=== PATIENT | male | born 1965 | race Caucasian/White ===

== ENCOUNTER 2022-10-15 22:21 | Inpatient (IN) | payer MEDICARE, BC ==
[~2022-10-15] VITALS: Ht 175.3 cm; Wt 98.8 kg
--- NOTE | 2022-10-15 22:52 | NUR ---
called poison control [phone] spoke to Darrius, she does not feel that his symptoms would be related to lamictal as it has been 24 hours since his last dose, he would have been sllepy and dizzy last night, do ekg, watch for QRS widening, QTinterval changes, seizures, she states observe for 6 hours, ASA, tylenol, urine tox, blood alcohol, check for poss UTI or other underlying cause of his confusion, dizzines and paranoia, spoke to Dr Alston, she will address
[2022-10-15 23:08] LABS: BASOPHILS % (AUTO) 0.5 % (0-1); EOSINOPHILS % (AUTO) 0.4 % (0-6); HEMATOCRIT 52.6 % (42.0-52.0); HEMOGLOBIN 17.5 g/dl (14.0-17.9); LYMPHOCYTES # (AUTO) 1.7 X10'3 (1.1-4.8); LYMPHOCYTES % (AUTO) 18.4 % (21-51); MEAN CORPUSCULAR HEMOGLOBIN 30.1 PG (27.0-31.0); MEAN CORPUSCULAR HGB CONC 33.3 g/dL (33.0-36.5); MEAN CORPUSCULAR VOLUME 90.6 FL (78-98); MEAN PLATELET VOLUME 8.7 FL (7.4-10.4); MONOCYTES # (AUTO) 0.8 X10'3 (0-0.9); MONOCYTES % (AUTO) 8.6 % (2-12); NEUTROPHILS # (AUTO) 6.5 X10'3 (1.8-7.7); NEUTROPHILS % (AUTO) 72.1 % (42-75); PLATELET COUNT 229 X10'3 (140-440); RED BLOOD COUNT 5.81 X10'6 (4.70-6.10); RED CELL DISTRIBUTION WIDTH 13.9 % (11.5-14.5); WHITE BLOOD COUNT 8.9 X10'3 (4.5-11.0)
--- NOTE | 2022-10-15 23:11 | NUR ---
3140 called poison control [phone] to Cori, she states that the half life of lamictal XR is 22-36hrs and he would need to go through at least 2 half lives beforesymptoms started to resolve, order EKG to check for QRS widening, and QT intervals, ASA, Tylenol, urine tox and blood alcohol, suggests poss uti, Addendum: 10/15/22 at 2315 by TDEPIERRIMagalis spoke to dr Gamaliel russo pt she will put in orders, I advised her of Poison Control recommendations
[2022-10-15] MEDS ORDERED: LOSA25TA96 PO (23:18)
[2022-10-15] MEDS ORDERED: LAMO100T40 PO ×2 (23:28)
[2022-10-15] MEDS ORDERED: ATOR10TA87 PO (23:28)
[2022-10-15] MEDS ORDERED: EMPA10TA PO (23:28)
[2022-10-15] MEDS ORDERED: INSU300I (23:28)
[2022-10-15] MEDS ORDERED: METF-436 PO ×2 (23:28)
[2022-10-15] MEDS ORDERED: INSU300I SQ (23:28)
[2022-10-15] MEDS ORDERED: SEMA0.25 (23:28)
[2022-10-15 23:29] LABS: ALANINE AMINOTRANSFERASE 38 U/L (12-78); ALBUMIN/GLOBULIN RATIO 1.1 (1.1-1.5); ALKALINE PHOSPHATASE 77 IU/L (46-116); ANION GAP 13 (8-16); ASPARTATE AMINO TRANSFERASE 28 U/L (10-37); BILIRUBIN,TOTAL 2.2 MG/DL (0.1-1.0); BLOOD UREA NITROGEN 19 MG/DL (7-18); BUN/CREATININE RATIO 23.5 (5.4-32.0); CALCIUM 9.2 MG/DL (8.5-10.1); CHLORIDE 100 MMOL/L (99-107); CREATININE 0.81 MG/DL (0.60-1.10); ETHANOL < 0.010 GM/DL (0.0-0.010); GLUCOSE 132 MG/DL (70-104); SODIUM 136 MMOL/L (135-145); TOTAL CARBON DIOXIDE 23.2 MMOL/L (24-32); TOTAL PROTEIN 7.6 G/DL (6.4-8.2); eGFR > 90 ML/MIN
[2022-10-15 23:34] LABS: VALPROATE < 3.0 UG/ML (50-100)
[2022-10-15 23:41] LABS: ACETAMINOPHEN < 2.0 UG/ML (10-30)
[2022-10-16 00:39] LABS: CLARITY,URINE CLEAR (Clear); COLOR,URINE STRAW (Yellow); GLUCOSE, URINE >=1000 mg/dl (Neg); KETONES,URINE 40 mg/dl (Neg); LEUKOCYTE ESTERASE ,URINE NEGATIVE (Neg); NITRITES, URINE NEGATIVE (Neg); OCCULT BLOOD,URINE NEGATIVE (Neg); PH,URINE 5.5 (4.8-8.0); PROTEIN,URINE NEGATIVE (Neg); UROBILINOGEN,URINE 0.2 E.U/dL (0.2-1.0)
[2022-10-16 00:42] LABS: UA COLLECTION TYPE VOIDED
[2022-10-16 00:44] LABS: URINE AMPHETAMINE SCREEN NEGATIVE (Neg); URINE BARBITUATE SCREEN NEGATIVE (Neg); URINE BENZODIAZEPINES SCREEN NEGATIVE (Neg); URINE CANNABINOID SCREEN NEGATIVE (Neg); URINE COCAINE SCREEN NEGATIVE (Neg); URINE METHADONE SCREEN NEGATIVE (Neg); URINE OPIATE SCREEN NEGATIVE (Neg); URINE PHENCYCLIDINE SCREEN NEGATIVE (Neg)
[2022-10-16 00:50] LABS: MUCUS STRANDS FEW /LPF (Neg); SQUAMOUS EPITHELIAL CELL,UR MODERATE /LPF (FEW)
[2022-10-16 00:51] LABS: BACTERIA,URINE FEW /HPF (Neg); CAL OXALATE CRYSTALS 1+ /HPF (NEGATIVE); RBC,URINE 0-2 /HPF (0-2); WBC,URINE 0-4 /HPF (0-4)
[2022-10-16] MEDS ORDERED: normal saline 1000ML IV soln IVB ONE (05:05)
[2022-10-16] MEDS ORDERED: LORazepam 2 mg/ml vial IV ONE (10:45)
[2022-10-16] MEDS ORDERED: diphenhydrAMINE 50 mg/ml inj IV ONE (10:45)
--- NOTE | 2022-10-16 16:29 | NUR ---
marcus sent pt packet to [facility]
[2022-10-16] MEDS: INSULIN GLARGINE HUM REC ANLOG 30 UNIT SQ SCH (20:00)
[2022-10-16] MEDS: metFORMIN 500mg tablet PO SCH (20:46)
--- NOTE | 2022-10-16 20:57 | NUR ---
PATIENT'S BS 140, PT USUALLY TAKE 30 UNITS TOJEO INSULIN, NOT AVAILABLE PER PHARMACY. SPOKE WITH DR. SANTOS [facility]
--- NOTE | 2022-10-17 00:43 | NUR ---
PT. SLEEPING QUIETLY IN BED WITHOUT APPARENT DISTRESS.
--- NOTE | 2022-10-17 01:34 | NUR ---
SLEEPING QUIETLY ON LEFT SIDE WITHOUT DISTRESS. WILL CONTINUE TO MONITOR.
--- NOTE | 2022-10-17 02:46 | NUR ---
No change in pt. condition, sleeping quietly. Will continue to monitor.
--- NOTE | 2022-10-17 03:50 | NUR ---
Awake , resting quietly in bed without distress observed. Will continue to monitor.
--- NOTE | 2022-10-17 04:41 | NUR ---
Pt. ambulated to bathroom with steady gait, back to bed resting quietly. Will continue to monitor.
--- NOTE | 2022-10-17 05:49 | NUR ---
Continues to sleep without distress. Will continue to monitor.
--- NOTE | 2022-10-17 07:05 | NUR ---
Patient is sitting quietly in bed. Will continue to monitor.
[2022-10-17] MEDS: lamoTRIgine 100mg tablet PO SCH (07:44)
[2022-10-17] MEDS: metFORMIN 500mg tablet PO SCH ×2 (07:44→20:16)
[2022-10-17] MEDS: EMPAGLIFLOZIN 10 MG TABLET PO SCH (07:44)
[2022-10-17] MEDS: atorvastatin 10mg tablet PO SCH (07:44)
[2022-10-17] MEDS: INSULIN GLARGINE HUM REC ANLOG 30 UNIT SQ SCH ×2 (07:45→18:40)
[2022-10-17] MEDS ORDERED: losartan 50mg tablet PO SCH (08:00)
--- NOTE | 2022-10-17 08:06 | NUR ---
Patient is visiting with his at bedside.
[2022-10-17] MEDS ORDERED: LORazepam 1 MG tablet PO ONE (08:50)
--- NOTE | 2022-10-17 09:01 | NUR ---
Patient is in the bathroom brushing his teeth.
--- NOTE | 2022-10-17 10:06 | NUR ---
Patient is using the bathroom. is at bedside
--- NOTE | 2022-10-17 11:03 | NUR ---
Patient is visiting with at bedside
[2022-10-17] MEDS: calcium carbonate 500mg chew tablet PO SCH ×2 (13:03→18:08)
--- NOTE | 2022-10-17 14:01 | NUR ---
Patient is talking quietly with his .
--- NOTE | 2022-10-17 14:34 | NUR ---
by bedside, pt was talking on the phone, appears to be relaxed. advised that pt had a good lunch
--- NOTE | 2022-10-17 15:01 | NUR ---
Brigitte from [facility] informed that pt is accepted into H
--- NOTE | 2022-10-17 16:01 | NUR ---
BRAULIO Washington from [facility] @ bedside. 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
[2022-10-17] MEDS ORDERED: mag hydrox/Alum hydrox/simeth 30ml oral suspension PO PRN (16:25)
[2022-10-17] MEDS ORDERED: acetaminophen 325mg tablet PO PRN ×2 (16:25)
[2022-10-17] MEDS ORDERED: magnesium hydroxide 30ml (MOM) UD suspension PO PRN (16:25)
--- NOTE | 2022-10-17 17:23 | NUR ---
Admit note: Pt admitted to [facility] today on 5150 for DTS/GD at 1605. Pt presents as confused and anxious. He has difficulty sitting down and eating. He reported that his suicidal thoughts are returning and he is feeling unsafe. He states "I somethimes thinkh my gfamily would be better off without me." Pt has history of periferal neruopathy, DM II, back pain, depression, Bipolar.
[2022-10-17 20:00] VITALS: BP 114/59
--- NOTE | 2022-10-17 21:46 | NUR ---
Received report at beginning of shift. Introduced myself to patient. He was sitting up in TV room watching a movie with other patients. Seems to be in good spriits while talking about movies and actors. Besides a bit of a flat affect, patient seems to be interacting and participating in conversations. Patient requesting something to help him sleep. Had to explain to him that whatever he may have gotten in the ER, is not ordered now. Explained that the first day/night after admissions is sometimes a little harder, as we are still trying to get medications figured out for him. He understood, but seemed a little frustrated. He asked to keep his roommate from pacing - I notified roommate's nurse.
--- NOTE | 2022-10-18 07:36 | NUR ---
Diabetes consult: Pt w/ hx of DM, no A1c in EMR. Pt would likely not be appropriate for education given admitting dx. Addendum: 10/18/22 at [address] Amended: Links added.
[2022-10-18 08:00] VITALS: BP 163/89
[2022-10-18] MEDS: INSULIN GLARGINE HUM REC ANLOG 30 UNIT SQ SCH ×2 (08:00→20:00)
[2022-10-18] MEDS: EMPAGLIFLOZIN 10 MG TABLET PO SCH (08:00)
[2022-10-18] MEDS: atorvastatin 10mg tablet PO SCH (08:43)
[2022-10-18] MEDS: calcium carbonate 500mg chew tablet PO SCH ×3 (08:43→17:40)
[2022-10-18] MEDS: losartan 50mg tablet PO SCH (08:43)
[2022-10-18] MEDS: metFORMIN 500mg tablet PO SCH ×2 (08:44→21:42)
[2022-10-18] MEDS: lamoTRIgine 100mg tablet PO SCH (08:44)
[2022-10-18 10:57] LABS: CHOL/HDL RATIO 1.6 (0.00-4.99); CHOLESTEROL 83 MG/DL (0-200); HDL CHOLESTEROL 51 MG/DL (35-60); LDL CHOLESTEROL 28 MG/DL (50-100); TRIGLYCERIDES 42 MG/DL (20-135)
[2022-10-18 13:48] LABS: HEMOGLOBIN A1C 5.6 % (4.5-6.2)
--- NOTE | 2022-10-18 17:49 | NUR ---
Nursing Progress Note: Pt admitted to [facility]al health today on 5150 for DTS/GD at 1605. Pt presents as confused and anxious. He has difficulty sitting down and eating. He reported that his suicidal thoughts are returning and he is feeling unsafe. He states "I sometimes think my family would be better off without me." Pt has history of peripheral neuropathy, DM II, back pain, depression, Bipolar. Interventions : Maintained a safe and supportive environment, provided clear and simple instructions, monitored behaviors and need for intervention, and maintained Q 15min safety checks. Response: Received patient sleeping in bed at change of shift. Patient attends breakfast with peers in group room. Patient takes medications as directed. Patient does not have his own insulin here, so requested that he ask his to bring it in for him to use, although his FBG has been WNL. Patients came in and gave us Dr. Telles drug testing for patient. She wanted to speak to the and a note was left for to that effect. Plan : Patient requires interruption of current crisis and medication adjustment in a safe and therapeutic environment.
[2022-10-18 20:01] VITALS: BP 134/62
[2022-10-18] MEDS: ARIPIPRAZOLE 15 MG TABLET PO SCH (21:42)
[2022-10-18] MEDS: LORazepam 1 MG tablet PO PRN (21:42)
--- NOTE | 2022-10-19 01:26 | NUR ---
Nursing Progress Note: Pt admitted to Behavioral health today on 5150 for DTS/GD at 1605. Pt presents as confused and anxious. He has difficulty sitting down and eating. He reported that his suicidal thoughts are returning and he is feeling unsafe. He states "I sometimes think my family would be better off without me." Pt has history of peripheral neuropathy, DM II, back pain, depression, Bipolar. Interventions : Maintained a safe and supportive environment, provided clear and simple instructions, monitored behaviors and need for intervention, and maintained Q 15min safety checks. Response: Pt lying in bed at start of shift. Pt isolated to his room except to come to group room for snack and then return to room. His affect is blunted. He answers questions with a minimal response. He denies SI at this time said he is still depressed but is getting better. He said he has had depression all his life but it comes and goes. He said his will bring in his insulin tomorrow. He is unclear about dosages for insulin. He took his HS meds without problem and went to sleep. Plan : Patient requires interruption of current crisis and medication adjustment in a safe and therapeutic environment.
[2022-10-19 08:00] VITALS: BP 116/60
[2022-10-19] MEDS: INSULIN GLARGINE HUM REC ANLOG 30 UNIT SQ SCH (08:00)
[2022-10-19] MEDS: EMPAGLIFLOZIN 10 MG TABLET PO SCH (08:25)
[2022-10-19] MEDS: metFORMIN 500mg tablet PO SCH ×2 (08:25→20:47)
[2022-10-19] MEDS: atorvastatin 10mg tablet PO SCH (08:26)
[2022-10-19] MEDS: calcium carbonate 500mg chew tablet PO SCH ×3 (08:26→18:10)
[2022-10-19] MEDS: lamoTRIgine 100mg tablet PO SCH (08:26)
[2022-10-19] MEDS: losartan 50mg tablet PO SCH (08:27)
[2022-10-19] MEDS: loperamide 2mg capsule PO PRN ×2 (15:46→20:46)
--- NOTE | 2022-10-19 17:52 | NUR ---
Nursing Progress Note Problem Pt admitted to Behavioral health today on 5150 for DTS/GD at 1605. Pt presents as confused and anxious. He has difficulty sitting down and eating. He reported that his suicidal thoughts are returning and he is feeling unsafe. He states "I sometimes think my family would be better off without me." Pt has history of peripheral neuropathy, DM II, back pain, depression, Bipolar. Interventions : Maintained a safe and supportive environment, provided clear and simple instructions, monitored behaviors and need for intervention, and maintained Q 15min safety checks. Response: Received Pt in bed sleeping w/o distress at the beginning of this shift. Pt woke and was cooperative with vitals and came to community room and ate both meals well today. Pts BS before lunch was 135. Pt guarded and minimizing MH SXs. Pt reports Im feeling better, but remains with passive SI. Pt napped in AM and Afternoon. C/O diarrhea and received Imodium X1. Pt used phone to talk with family throughout the day. Family has not yet brought in Pts Insulin. Dr Mendoza would like to be called when that Med arrives to discuss its use. Overall pleasant and asks for needs appropriately. Plan : Patient requires interruption of current crisis and medication adjustment in a safe and therapeutic environment.
[2022-10-19 20:00] VITALS: BP 137/87
[2022-10-19] MEDS: ARIPIPRAZOLE 15 MG TABLET PO SCH (20:46)
[2022-10-19] MEDS: LORazepam 1 MG tablet PO PRN (20:54)
--- NOTE | 2022-10-19 23:40 | NUR ---
Nursing Progress Note Problem: Pt admitted from [facility] on 5150 as DTS. Pt has history of MDD, PTSD. Pt. has made multiple suicidal attempts. Interventions: One to one with patient in his room. Assessed for severity of depressive symptoms and self harm risks. Physical assessment completed. Medicated for complaints of diarrhea. Assessed for confusion. Patient on Q 15 minutes for safety. Response: Patient is pleasant and cooperative. He reports recent episode of diarrhea. Denies SI at the time. reports feelings of SI when he is unable to sleep. States, "If I can't sleep I want to just ent it all.' He has had a recent decrease in appetite and reports a 20lb weight loss without trying. He resides in a house with his and she is very supportive. Patient requested Ativan at bedtime. Plan: Maintain a safe environment and continue Q15 minute checks throughout shift. Discharge has yet to be determined.
[2022-10-20 08:00] VITALS: BP 128/74
[2022-10-20] MEDS: lamoTRIgine 100mg tablet PO SCH (08:17)
[2022-10-20] MEDS: metFORMIN 500mg tablet PO SCH ×2 (08:17→19:34)
[2022-10-20] MEDS: EMPAGLIFLOZIN 10 MG TABLET PO SCH (08:17)
[2022-10-20] MEDS: atorvastatin 10mg tablet PO SCH (08:17)
[2022-10-20] MEDS: losartan 50mg tablet PO SCH (08:20)
[2022-10-20] MEDS: calcium carbonate 500mg chew tablet PO SCH ×3 (10:38→18:08)
[2022-10-20] MEDS: LORazepam 1 MG tablet PO PRN ×2 (13:31→19:34)
--- NOTE | 2022-10-20 15:12 | NUR ---
Nursing Progress Note Problem Pt admitted to [facility] on a 5150 for DTS/GD at 1605. Pt presents as confused and anxious. He has difficulty sitting down and eating. He reported that his suicidal thoughts are returning and he is feeling unsafe. He states "I sometimes think my family would be better off without me." Pt has history of peripheral neuropathy, DM II, back pain, depression, Bipolar. Interventions : 1:1 assessment, establishment of rapport, therapeutic communication, active listening, ensured contract for safety, medication administration/education/monitoring, blood glucose monitoring, provided distraction, redirection, encouragement to participate in unit activities, positive reinforcement, and Q15 minute safety checks. Response: Pt's FS BG this morning AC breakfast was 95, it was 102 before lunch. Pt continues on PO antidiabetic meds, pt is not receiving, nor seems to need insulin. Pt denies SI this morning reporting that he was "just hungry." Pt c/o 9/10 back pain and was given PRN Tylenol 650 mg at 0822 with good effect. Pt's visited today. She emphasized how helpful Ativan is for the patient and when he takes it, "he comes back," he does not seem ill to her then. reports that pt really does not sleep well and Ativan helps him sleep. stated that pt goes through episodes of depression and he continues to take his medical meds (those for HTN or DM) but will not take his psych meds (lamotrigine.) stressed that she doesn't understand it, she doesn't know why. This RN asked Miguelito why he had not wanted to take his psych meds. Pt replied that they hurt his stomach. Pt describes ongoing abdominal discomfort and diarrhea. Suggested that he make an appointment with his PCP to address this. Pt and also reported that pt has lost a lot of weight, around 40 pounds since he was prescribed his twice daily insulin at home,and that pt's blood sugar had been dropping down to the 60's with pt symptomatic of s/sx hypoglycemia. Educated pt and that he probable no longer needs his insulin, and again, that they should discuss this with his PCP. Pt approached this RN with the cordless phone after lunch stating that his wished to speak with me. told this RN that the pt was anxious and needed some Ativan. She also wanted to ensure that the pt is prescribed Ativan when he is discharged. instructed that if the patient could have Ativan now and again tonight at bedtime, that would be great. Pt was given PRN Ativan 1 mg at 1331. Pt approached this nurse around 1430 c/o feeling "groggy." He asked if it would be okay if he went to lie down for a nap and asked if his grogginess was caused by the Ativan. Pt educated that it was likely a result of the Ativan. Pt went to his room for a nap. Plan : Pt was in need of stabilization with medication adjustment and management in a safe and therapeutic environment. Plan is for the patient to discharge home with his tomorrow.
--- NOTE | 2022-10-20 16:19 | NUR ---
Therapeutic group DESCRIPTION Daily therapeutic groups support [facility] crisis-recovery environment. RESPONSE Client came to group, did not speak, participated in "thank you" activity, and excused himself, stating he had just taken Ativan and was falling asleep. Client was very polite: "I don't want to be rude." Group members told client it was fine. SKILL BUILDING AREA: psychosocial educationgestures of gratitude and thanks release dopamine, which allows a feeling of well-being, pleasure, accomplishment. Activity: requested by clients -- thank you banner for kitchen staff. Discussion of supportive (but not problem solving) peer conversation using the V-validation, A-acknowledgement, R-refer model, with a handout. INTERVENTION Therapeutic communication, peer support, validation by peers, coping skills and psychosocial education. Secondarily: intellectual and physical activity, peer, and staff companionship, alleviating and discouraging isolation. TREATMENT Until stable, client requires time in a safe and therapeutic environment employing multidisciplinary treatments, including therapeutic groups.
[2022-10-20] MEDS: ARIPIPRAZOLE 15 MG TABLET PO SCH (19:34)
[2022-10-20 20:23] VITALS: BP 141/78
--- NOTE | 2022-10-21 00:48 | NUR ---
Nursing Progress Note : asael Salazar Pt admitted to [facility] on a 5150 for DTS/GD at 1605. Pt presents as confused and anxious. He has difficulty sitting down and eating. He reported that his suicidal thoughts are returning and he is feeling unsafe. He states "I sometimes think my family would be better off without me." Pt has history of peripheral neuropathy, DM II, back pain, depression, Bipolar. Interventions : 1:1 assessment, establishment of rapport, therapeutic communication, active listening, ensured contract for safety, medication administration/education/monitoring, blood glucose monitoring, provided distraction, redirection, encouragement to participate in unit activities, positive reinforcement, and Q15 minute safety checks. Response: Received pt lying in bed resting. Pt somewhat agitated that this RN woke him but complained of some anxiety and requested Ativan with his HS medications. Pt isolated to his room all evening, declined snacks, and took all HS medications. Pt went to bed shortly after med pass. Plan : Pt was in need of stabilization with medication adjustment and management in a safe and therapeutic environment. Plan is for the patient to discharge home with his tomorrow.
--- NOTE | 2022-10-21 07:23 | NUR ---
Initial: pt admitted w/ bipolar disorder per EMR. Currently on Carb control diet w/ avg intake 70% of meals partially meeting needs. A1c 5.6 Recommend liberalizing to Regular diet as A1c WNL and this will give him more calories. LBM 10/18. Will continue to monitor. Recs: 1. Liberalize to Regular diet; A1c 5.6 2. Bowel care per rx 3. Weekly wts Addendum: 10/21/22 at [address] Amended: Links added.
[2022-10-21] MEDS: EMPAGLIFLOZIN 10 MG TABLET PO SCH (07:42)
[2022-10-21] MEDS: metFORMIN 500mg tablet PO SCH (07:43)
[2022-10-21] MEDS: calcium carbonate 500mg chew tablet PO SCH ×2 (07:43→12:30)
[2022-10-21] MEDS: atorvastatin 10mg tablet PO SCH (07:43)
[2022-10-21] MEDS: losartan 50mg tablet PO SCH (07:43)
[2022-10-21] MEDS: lamoTRIgine 100mg tablet PO SCH (07:44)
[2022-10-21 07:46] VITALS: BP 128/68
[2022-10-21] MEDS ORDERED: ARIP20TA21 PO (11:37)
[2022-10-21] MEDS ORDERED: ATI1T PO (11:37)
[2022-10-21] MEDS ORDERED: LAMO50TA PO (11:37)
--- NOTE | 2022-10-21 12:35 | NUR ---
Discussed discharge instructions and education with patient, verbalized understanding. Belongings returned to patient and got dressed. Flat affect, denies SI. There was some confusion on his discharge date being 10/30 instead of 12:30 p.m today. Improved from admit. No acute distress at this time. Follow-up appointment scheduled and confirmed with patient and . Escorted out by Khushboo RAMSEY at this time with .
== END 2022-10-21 12:37 | disposition home or self-care (01) | DRG 885 ==
LOC: ER 22:23 → ED HOLD 10-17 15:00 → ADULT MH 10-17 16:12
PROVIDERS: ADMIT Psychiatry & Neurology Psychiatry; ATTEND Psychiatry & Neurology Psychiatry
DX: F31.9 Bipolar disorder, unspecified (principal); T42.6X1A Poisoning by other antiepileptic and sedative-hypnotic drugs, accidental (unintentional), initial encounter; R45.851 Suicidal ideations; E11.42 Type 2 diabetes mellitus with diabetic polyneuropathy; Z20.822 Contact with and (suspected) exposure to COVID-19; E78.5 Hyperlipidemia, unspecified; G89.29 Other chronic pain; M54.9 Dorsalgia, unspecified; I10 Essential (primary) hypertension; K21.9 Gastro-esophageal reflux disease without esophagitis; Z79.4 Long term (current) use of insulin; Z79.84 Long term (current) use of oral hypoglycemic drugs; Z79.899 Other long term (current) drug therapy; Z87.891 Personal history of nicotine dependence; Z88.0 Allergy status to penicillin; Y92.89 Other specified places as the place of occurrence of the external cause
CPT/HCPCS: 36415; 80053; 80061; 80164; 80305; 80320; 80329; 81001; 82948; 83036; 84443; 85025; 87081; 87635; 93005; 99285; C9803; J1200; J2060; J7030